=== PATIENT | male | born 1990 | race Two or more races ===

== ENCOUNTER → 2023-11-24 | Outpatient (CLI) | payer MEDICAID ==
[2023-11-24 08:12] LABS: Basophils # (auto) 0.1 10 ^3/uL (0-0.2); Eosinophils # (auto) 0.1 10 ^3/uL (0-0.8); Eosinophils % (auto) 2.5 % (0.0-7.0); Hematocrit 45.8 % (41.0-53.0); Hemoglobin 15.5 g/dL (13.5-17.5); Lymphocytes # (auto) 2.1 10 ^3/uL (0.4-5.4); Lymphocytes % (auto) 37.8 % (10.0-50.0); Mean Corpuscular Hemoglobin 29.3 pg (28.0-32.0); Mean Corpuscular Hgb Conc. 33.9 g/dL (32.0-36.0); Mean Corpuscular Volume 86.5 fL (80.0-100.0); Monocytes # (auto) 0.4 10 ^3/uL (0-1.3); Monocytes % (auto) 7.2 % (0.0-12.0); Neutrophils # (auto) 2.8 10 ^3/uL (1.6-8.6); Neutrophils % (auto) 51.5 % (37.0-80.0); Red Blood Cells 5.29 10^6/uL (4.5-5.90); Red Cell Distribution Width 14.3 % (11.8-14.3); White Blood Cell 5.5 10^3/uL (4.4-10.8)
[2023-11-24 08:52] LABS: Alanine Aminotransferase 26 U/L (7-40); Alkaline Phosphatase 90 U/L (46-116); Anion Gap 9 (5-15); Calcium 9.6 mg/dL (8.5-10.1); Carbon Dioxide 23 mmol/L (20-30); Chloride 106 mmol/L (98-107); Potassium 4.1 mmol/L (3.5-5.1); Sodium 138 mmol/L (136-145)
[2023-11-24 08:53] LABS: Glucose 114 mg/dL (74-106)
[2023-11-24 08:54] LABS: BUN/Creatinine Ratio 18.7 (10.0-20.0); Blood Urea Nitrogen 17 mg/dL (9-23); LDL Cholesterol 121 mg/dL (< 100); Triglycerides 210 mg/dL (< 150)
[2023-11-24 08:55] LABS: Albumin 4.6 g/dL (3.2-4.8); Aspartate Aminotransferase 30 U/L (13-40); Cholesterol 180 mg/dL (< 200)
[2023-11-24 08:56] LABS: Bilirubin, Total 0.4 mg/dL (0.2-1.0); HDL Cholesterol 37 mg/dL (40-59); Total Protein 6.9 g/dL (5.7-8.2)
[2023-11-24 10:25] LABS: T3 Total 1.13 ng/mL (0.60-1.81)
[2023-11-24 10:26] LABS: Free T3 3.62 pg/mL (2.3-4.2)
[2023-11-24 10:27] LABS: Free T4 (Free Thyroxine) 1.03 ng/dL (0.89-1.76)
== END | disposition home or self-care (01) ==
LOC: LAB 07:27
PROVIDERS: ATTEND Nurse Practitioner Gerontology
DX: R42 Dizziness and giddiness (principal); R94.31 Abnormal electrocardiogram [ECG] [EKG]; I49.9 Cardiac arrhythmia, unspecified
CPT/HCPCS: 36415; 80053; 80061; 83036; 84439; 84443; 84480; 84481; 85025

== ENCOUNTER 2025-03-01 07:11 | Outpatient (CLI) | payer MEDICAID ==
[2025-03-01 08:02] LABS: Hematocrit 45.5 % (41.0-53.0); Hemoglobin 15.6 g/dL (13.5-17.5); Mean Corpuscular Hemoglobin 29.7 pg (28.0-32.0); Mean Corpuscular Volume 86.3 fL (80.0-100.0); Nucleated Red Blood Cells % 0.2 %
[2025-03-01 08:56] LABS: Urine Protein, UAD Negative (Negative)
[2025-03-01 09:20] LABS: Alanine Aminotransferase 16 U/L (7-40); Albumin 4.4 g/dL (3.2-4.8); Alkaline Phosphatase 77 U/L (46-116); Anion Gap 10 (5-15); BUN/Creatinine Ratio 12.4 (10.0-20.0); Blood Urea Nitrogen 13 mg/dL (9-23); Calcium 9.8 mg/dL (8.7-10.4); Carbon Dioxide 26 mmol/L (20-31); Chloride 106 mmol/L (98-107); Cholesterol 189 mg/dL (< 200); Glucose 106 mg/dL (74-106); Potassium 4.3 mmol/L (3.5-5.1); Sodium 142 mmol/L (136-145); Total Protein 6.9 g/dL (5.7-8.2)
[2025-03-01 09:21] LABS: Bilirubin, Total 0.5 mg/dL (0.2-1.0)
[2025-03-01 09:22] LABS: HDL Cholesterol 34 mg/dL (40-59); Triglycerides 285 mg/dL (< 150)
== END 2025-03-01 17:00 | disposition home or self-care (01) ==
LOC: LAB 07:11
PROVIDERS: ATTEND Internal Medicine
DX: E78.2 Mixed hyperlipidemia (principal); R73.03 Prediabetes; Z13.1 Encounter for screening for diabetes mellitus; Z00.01 Encounter for general adult medical examination with abnormal findings
CPT/HCPCS: 36415; 80053; 80061; 81001; 83036; 84439; 84443; 85025

== ENCOUNTER 2025-03-03 09:37 | Emergency (ER) | payer MEDICAID ==
[~2025-03-03] VITALS: Ht 190.5 cm; Wt 180.8 kg
[2025-03-03] MEDS ORDERED: HYDR-4798 PO (10:10)
--- NOTE | 2025-03-03 10:27 | ED.PDOC ---
Back pain HPI HPI Comments A 35 Y/O M PRESENTS WITH C/C CHRONIC BACK AND RIGHT KNEE PAIN. PATIENT REPORTS ON PAIN BEING CHRONIC, WITH KNEE PAIN GOING ON FOR MORE THAN 6 MONTHS AND BACK PAIN FOR SEVERAL YEARS. HE STATES ON BEING RECOMMENDED TO COME TO THE ED BY PCP FOR PAIN MANAGEMENT AFTER HAVING X-RAYS DONE ON 02/17/25 VIA OUTPATIENT BEING BENIGN AND HAVING NO RELIEF WITH OVER THE COUNTER PAIN AND PRESCRIPTION STEROID MEDICATIONS. 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 DENIES ANY ADDITIONAL SYMPTOMS. PT DENIES FALL INJURY, SOB, CHEST PAIN, DIFFICULTY URINATION AND OTHER COMPLAINTS. NO OTHER SYMPTOMS REPORTED AT THIS TIME OF CARE. Chief Complaint: Back Pain Time Seen by MD: 10:00 Reviewed Notes: Nurses Notes, Medications, Allergies Allergies: Coded Allergies: NO KNOWN ALLERGIES (Unverified , 11/13/23) Home Meds Active Scripts Hydrocodone-Acetaminophen (Hydrocodone Bitartrate/AC 10-325 mg) 1 Tab Tab, 1 TAB PO BID, #14 TAB Prov:MARLENE TENORIO 03/03/25 Information Source: Patient Mode of Arrival: Ambulatory Timing: Days, Months Duration: Since onset Location of Back pain: (B) Lower back, Other (RIGHT KNEE PAIN ) Severity: Moderate Prehospital treatment: Treatment, Other (SEE HPI) Quality: Aching, Cramping, Sharp Onset: Spontaneous History of: Chronic Back Pain Modifying Factors: Movement, Twisting Associated signs and symptoms: None Past Medical History PAST MEDICAL HISTORY: DM, High Lipids Past Medical History (Other): MORBID OBESITY CHRONIC LOW BACK AND RIGHT KNEE PAIN Surgical History: Denies all surgeries Social History Smoker: Non-Smoker Alcohol: Denies ETOH Use Drugs: Denies Drug Use Lives In: Home Constitutional: denies: chills, diaphoresis, fatigue, fever, malaise, sweats, weakness, others EENTM: denies: blurred vision, double vision, ear bleeding, ear discharge, ear drainage, ear pain, ear ringing, eye pain, eye redness, hearing loss, mouth pain, mouth swelling, nasal discharge, nose bleeding, nose congestion, nose pain, photophobia, tearing, throat pain, throat swelling, voice changes, others Respiratory: denies: cough, hemoptysis, orthopnea, SOB at rest, shortness of breath, SOB with excertion, stridor, wheezing, others Cardiovascular: denies: chest pain, dizzy spells, diaphoresis, Dyspnea on exertion, edema, irregular heart beat, left arm pain, lightheadedness, palpitations, PND, syncope, others Gastrointestinal: denies: abdomen distended, abdominal pain, blood streaked bowels, constipated, diarrhea, dysphagia, difficulty swallowing, hematemesis, melena, nausea, poor appetite, poor fluid intake, rectal bleeding, rectal pain, vomiting, others Genitourinary: denies: burning, dysuria, flank pain, frequency, hematuria, incontinence, penile discharge, penile sore, pain, testicle pain, testicle swelling, urgency, others Neurological: denies: dizziness, fainting, headache, left sided numbness, left sided weakness, numbness, paresthesia, pre-existing deficit, right sided numbness, right sided weakness, seizure, speech problems, tingling, tremors, weakness, others Musculoskeletal: reports: back pain, joint pain (RIGHT KNEE), muscle pain; denies: gout, joint swelling, muscle stiffness, neck pain, others Integumetry: denies: bruises, change in color, change in hair/nails, dryness, laceration, lesions, lumps, rash, wounds, others Allergic/Immunocompromised: denies: Difficulty Healing, Frequent Infections, Hives, Itching, others Hematologic/Lymphatic: denies: anemia, blood clots, easy bleeding, easy bruising, swollen glands, others Endocrine: denies: excessive hunger, excessive sweating, excessive thirst, excessive urination, flushing, intolerance to cold, intolerance to heat, unexplained weight gain, unexplained weight loss, others Psychiatric: denies: anxiety, bipolar disorder, depression, hopeless, panic disorder, schizophrenia, sleepless, suicidal, others All Other Systems: Reviewed and Negative Physical Exam General Appearance: No Apparent Distress, Obese HEENT: Normal ENT Inspection, PERRL/EOMI, Pharynx Normal, TMs Normal Neck: Full Range of Motion, Non-Tender, Normal, Normal Inspection Respiratory: Chest Non-Tender, Lungs Clear, No Accessory Muscle Use, No Respiratory Distress, Normal Breath Sounds Cardiovascular: No Edema, No JVD, No Murmur, No Gallop, Normal Peripheral Pulses, Regular Rate/Rhythm Breast Exam: Deferred Gastrointestinal: No Organomegaly, Non Tender, No Pulsatile Mass, Normal Bowel Sounds, Soft Genitalia: Deferred Pelvic: Deferred Rectal: Deferred Extremities: No calf tenderness, Normal capillary refill, Normal range of motion, No pedal edema, Tender (ON RIGHT KNEE, NO BONY TENDERNESS, SWELLING AND DEFORMITY. ) Musculoskeletal : Location: Bilateral Extremity Location: Back Apperance: Tenderness (AND MUSCLE SPASM ON LOW BACK, NO BONY TENDERNESS, SWELLING AND DEFORMITY. 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 Was a procedure done?: No Back Pain Differential Dx Differential Diagnosis: Fracture, Musculoskeletal Pain, Other (STRAIN, CHRONIC PAIN SYNDROME) X-Ray, Labs, Meds, VS Vital Signs Date Time Temp Pulse Resp B/P (MAP) Pulse Ox O2 Delivery O2 Flow Rate FiO2 03/03/25 10:31 74 18 97 Room Air 03/03/25 10:31 98.1 74 18 134/89 (104) 97 98.1 03/03/25 09:53 97.8 85 18 143/90 (107) 95 97.8 Current Medications Medications (Trade) Dose Ordered Sig/Margot Route Start Time Stop Time Status Last Admin Ketorolac Tromethamine (Toradol Injection) 60 mg ONCE ONCE IM 03/03/25 10:15 03/03/25 10:16 DC 03/03/25 10:30 X-Ray, Labs, Meds, VS Comment PATIENT HAD X-RAYS DONE VIA OUTPATIENT UNDER ORDER OF HIS PCP ON 02/17/25. RIGHT KNEE AND BACK X-RAYS PERFORMED THEN WERE BENIGN. DETERMINED TO BE CHRONIC PAIN SYNDROME TREATMENT: TORADOL 60MG IM PRESCRIBED 10MG NORCO. Time of 1ST Reevaluation: 11:01 Reevaluation 1ST: Improved Patient Education/Counseling: Diagnosis, Treatment, Need For Follow Up Family Education/Counseling: Diagnosis, Treatment, No Family Present Medical Screening: No EMC Exist At This Time SEPSIS Sepsis Screen Vital Signs Date Time Temp Pulse Resp B/P (MAP) Pulse Ox O2 Delivery O2 Flow Rate FiO2 03/03/25 10:31 74 18 97 Room Air 03/03/25 10:31 98.1 74 18 134/89 (104) 97 98.1 03/03/25 09:53 97.8 85 18 143/90 (107) 95 97.8 Medications Medications Dose Ordered Sig/Margot Route Start Time Stop Time Status Last Admin Dose Admin Ketorolac Tromethamine 60 mg ONCE ONCE IM 03/03/25 10:15 03/03/25 10:16 DC 03/03/25 10:30 Departure 1 Departure Time of Disposition: 11:01 Impression: Primary Impression: Chronic back pain Qualified Codes: M54.50 - Low back pain, unspecified; G89.29 - Other chronic pain Additional Impressions: Chronic pain of right knee Pain management Morbid obesity Disposition: HOME / SELF CARE / HOMELESS Condition: Stable Additional Instructions: FOLLOW UP WITH PCP WITHIN 24-48 HOURS e-Prescriptions Hydrocodone-Acetaminophen (Hydrocodone Bitartrate/AC 10-325 mg) 1 Tab Tab 1 TAB PO BID, #14 TAB Prov: MARLENE TENORIO 03/03/25 Discharged With: Self Critical Care Note Critical Care Time?: No Stability Stability form required: No Heart Score Heart Score: Heart Score Response (Comments) Value History N/A 0 EKG N/A 0 Age N/A 0 Risk Factors N/A 0 Troponin N/A 0 Total 0 I personally scribed for MARLENE TENORIO ([email or web address]) on 03/03/25 at 10:27. Electronically submitted by Ebenezer Carranza ([email or web address]). MARLENE TENORIO Mar 03, 2025 10:27
[2025-03-03] MEDS: KETOROLAC TROMETH 60MG/2ML VIAL IM ONE (10:30)
[2025-03-03 11:12] VITALS: BP 149/85; PULSE 74; RESP 16; TEMP 98.2; O2SAT 95
== END 2025-03-03 11:12 | disposition home or self-care (01) ==
LOC: ER 09:37
DX: G89.29 Other chronic pain (principal); M54.9 Dorsalgia, unspecified; M25.561 Pain in right knee; E11.9 Type 2 diabetes mellitus without complications; E66.01 Morbid (severe) obesity due to excess calories; Z68.42 Body mass index [BMI] 45.0-49.9, adult
CPT/HCPCS: 96372; 99283; J1885

== ENCOUNTER 2025-03-28 23:48 | Emergency (ER) | payer MEDICAID, OTHER ==
[~2025-03-28] VITALS: Ht 193 cm; Wt 178.3 kg
[~2025-03-28 23:48] MED LIST: HYDR-4798 PO
[2025-03-29 00:13] VITALS: TEMP 98.3
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
[2025-03-29] MEDS: ACETAMINOPHEN 325 MG TAB PO ONE (00:42)
--- NOTE | 2025-03-29 01:06 | DVH ---
XY LUMBAR SPINE 3 VIEW CLINICAL HISTORY: lumbar back pain COMPARISON: None TECHNIQUE: Frontal and lateral view of the chest was obtained FINDINGS: IMPRESSION: 1. No acute lumbar fracture or listhesis. No significant degenerative changes. No acute soft tissue a bnormalities.
--- NOTE | 2025-03-29 01:08 | DVH ---
XY CHEST TWO VIEWS ROUTINE CLINICAL HISTORY: chest wall pain COMPARISON: None TECHNIQUE: Frontal and lateral view of the chest was obtained FINDINGS: Lines and Tubes: None Lungs: No focal consolidation. Pleura: No effusion. No pneumothorax. Cardiomediastinal contours: Unremarkable Bones: No acute osseous abnormality. IMPRESSION: 1. No acute cardiopulmonary disease.
--- NOTE | 2025-03-29 01:24 | DVH ---
CT OF THE CERVICAL SPINE WITHOUT CONTRAST HISTORY: neck pain COMPARISON: None TECHNIQUE: Helical images through the cervical spine were obtained without contrast. Sagittal and cor onal reformats were obtained. One or more of the following radiation dose reduction techniques were u sed for this examination: automated exposure control, adjustment of the mA and/or kV according to pat ient size, use of iterative reconstruction technique. Dose: CTDIvol: 23.8 mGy, DLP: 588.73 mGy.cm FINDINGS: There is no acute displaced fracture. Intervertebral disc heights are well-maintained. There is no CT evidence of significant spinal canal or neural foraminal stenosis. The paraspinal soft tissues are unremarkable. IMPRESSION: 1. No acute displaced fracture. 2. If clinical symptoms persist, MRI may be beneficial in further evaluation.
--- NOTE | 2025-03-29 01:29 | DVH ---
Indication: headache Comparison: None Technique: Utilizing a multislice CT scanner, a CT scan of the brain was performed without intravenou s contrast. Coronal and sagittal reformatted images. All CT scans at this facility use dose modulation, iterative reconstruction, and/or weight based dosi ng when appropriate to reduce radiation dose to as low as reasonably achievable. Findings: Nonspecific posterior cortical volume loss which may be congenital. There is no acute infarct, intrac ranial hemorrhage, or mass effect. There is no hydrocephalus or significant midline shift. No acute, depressed calvarial fractures. No large scalp hematomas. Left maxillary sinus fluid. Impression: 1. No acute intracranial process. 2. Left maxillary sinus fluid which may reflect sinusitis.
[2025-03-29] MEDS ORDERED: ACET500T58 PO (01:45)
[2025-03-29 01:52] VITALS: BP 144/80; PULSE 79; RESP 20; O2SAT 96
--- NOTE | 2025-03-29 10:49 | ECG ---
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
== END 2025-03-29 01:52 | disposition home or self-care (01) ==
LOC: ER 23:48
DX: S16.1XXA Strain of muscle, fascia and tendon at neck level, initial encounter (principal); S39.012A Strain of muscle, fascia and tendon of lower back, initial encounter; S20.219A Contusion of unspecified front wall of thorax, initial encounter; R51.9 Headache, unspecified; Z79.899 Other long term (current) drug therapy; V89.2XXA Person injured in unspecified motor-vehicle accident, traffic, initial encounter; Y93.89 Activity, other specified; Y92.410 Unspecified street and highway as the place of occurrence of the external cause; Y99.8 Other external cause status
CPT/HCPCS: 36415; 70450; 71046; 72100; 72125; 84484; 93005